=== PATIENT | female | born 1985 | race Hispanic/Latino ===

== ENCOUNTER 2020-04-20 13:08 | Outpatient (CLI) | payer BC, SELFPAY ==
[2020-04-20 14:45] LABS: Hematocrit 35.1 % (37.0-47.0); Hemoglobin 11.8 g/dL (12.0-15.0)
[2020-04-20 14:59] LABS: Glucose 1 Hour PP 50gm Dose 117 mg/dL
[2020-04-20 15:40] LABS: HIV 1/2 Ab P24 Ag Result Negative (Negative)
== END 2020-04-20 13:09 | disposition home or self-care (01) ==
PROVIDERS: PCP Family Medicine; Visit Provider Obstetrics & Gynecology
DX: Z34.02 Encounter for supervision of normal first pregnancy, second trimester (principal)
CPT/HCPCS: 36415; 82947; 85014; 85018; 86703; G0432

== ENCOUNTER 2020-04-30 21:30 | Observation (INO) | payer BC, SELFPAY ==
[2020-04-30 21:48] VITALS: TEMP 36.8
[2020-04-30 21:51] VITALS: BP 115/95; PULSE 85
[2020-04-30 21:57] VITALS: BP 119/75; PULSE 86
[2020-04-30 22:00] VITALS: BP 114/79; PULSE 88
--- NOTE | 2020-04-30 22:13 | PC.NURSE ---
rn and bedside w stratus superintendent institution device.
[2020-04-30 22:15] VITALS: BP 129/73; PULSE 83
[2020-04-30 22:51] LABS: Add Urine Microscopic? NO; Appearance Urine Clear (Clear); Bilirubin Urine Negative (Negative); Blood Urine Negative (Negative); Color Urine Straw (Yellow); Glucose Urine UA Negative (Negative); Ketones Urine Negative (Negative); Leukocyte Esterase Ur Negative LEU/UL (Negative); Nitrate Urine Negative (Negative); Protein Urine Negative (Negative); Specific Grav Ur 1.006 (1.001-1.035); Urobilinogen Urine Negative mg/dL (<2.0)
[2020-04-30 23:15] VITALS: BMI 27.2
[2020-04-30] MEDS: FAMOTIDINE 20 MG TABLET PO (23:26)
[2020-04-30] MEDS: ONDANSETRON HCL ODT 4 MG TABLET PO (23:31)
--- NOTE | 2020-05-01 01:54 | OBADM ---
This patient, Jenniffer Krishnamurthy, admitted to the OB room OB Post 117 for observation. Patient/family oriented to hospital policies and general routines including ID bracelet, bed and alarms, visiting hours, pain management, procedures, bathroom and other care routines, personal items, smoking policy, room service/diet, and visiting hours. Patient/Family are encouraged to report perceived risks to care and to ask questions if they do not understand what they are told or what they should do.
--- NOTE | 2020-05-03 07:54 | P.PNOB_ITS ---
OB - Triage/Final Diagnosis Evaluation Laboratory results: Laboratory Tests 04/30/20 22:37 Urine Color Straw Urine Appearance Clear Urine pH 7.0 Ur Specific [place] 1.006 Urine Protein Negative Urine Glucose (UA) Negative Urine Ketones Negative Ur Blood (Man) Negative Urine Nitrate Negative Urine Bilirubin Negative Urine Urobilinogen Negative Leukocyte Esterase Rfl Negative Final Diagnosis (1) Abdominal pain affecting : Code(s): O26.899 - Other specified related conditions, unspecified trimester; R10.9 - Unspecified abdominal pain Status: Acute
== END 2020-05-01 00:10 | disposition home or self-care (01) ==
PROVIDERS: Admitting Provider Obstetrics & Gynecology; Visit Provider Obstetrics & Gynecology
DX: O26.893 Other specified pregnancy related conditions, third trimester (principal); R10.9 Unspecified abdominal pain; Z3A.31 31 weeks gestation of pregnancy
CPT/HCPCS: 81003; A9270; G0378; G0379

== ENCOUNTER 2020-06-29 01:02 | Inpatient (IN) | payer BC, SELFPAY ==
[2020-06-29] VITALS (126 sets, daily range): BP systolic 109–165; BP diastolic 60–105; PULSE 68–134; RESP 13–22; TEMP 36.7–37.5; O2SAT 96–100; BMI 25.9
[2020-06-29 06:23] LABS: Basophils Percent Auto 0.1 % (0.2-1.2); Eosinophils Percent Auto 0.1 % (0-4.4); Hematocrit 35.4 % (37.0-47.0); Hemoglobin 12.1 g/dL (12.0-15.0); Immature Granulocyte Absolute 0.04 K/mm3 (0.00-0.031); Immature Granulocyte Percent A 0.3 % (0-0.5); Lymphocytes Absolute Auto 1.63 K/mm3 (0.9-3.2); Lymphocytes Percent Auto 13.7 % (18.3-44.2); Mean Corpuscular HGB Conc 34.2 g/dl (32-36); Mean Corpuscular Hemoglobin 29.9 pg (26-34); Mean Corpuscular Volume 87.4 fl (80-100); Mean Platelet Volume 11.2 fl (7.4-10.4); Monocytes Absolute Auto 0.6 K/mm3 (0.1-0.6); Monocytes Percent Auto 4.8 % (2.6-8.5); Neutrophils Absolute Auto 9.7 K/mm3 (1.3-6.7); Platelet Count Result 222 k/mm3 (150-375); Red Blood Count 4.05 M/mm3 (4.2-5.4); Red Cell Distribution Width 13.4 % (11.5-14.5); White Blood Count 11.9 K/mm3 (4.5-10.0)
--- NOTE | 2020-06-29 06:54 | P.PNAN_ITS ---
Anes - Eval Pre Procedure Procedure: labor epidural Date/Time: 06/29/20 06:54 Surgeon: Zacarias Patton Preop Diagnosis: Pain during labor Pre Op Diagnosis: Contractions Patient Data Age: 34 Gender: F Height: 5 ft 7 in Weight: 72.7 kg Last Vital Signs Temp 37.0 C 06/29/20 00:54 Pulse 86 06/29/20 06:15 Resp 22 H 06/29/20 00:54 BP 129/89 06/29/20 06:15 Pulse Ox 98 06/29/20 00:54 Allergies Allergy/AdvReac Type Severity Reaction Status Date / Time No Known Allergies Allergy Verified 11/27/19 18:47 Home Medications Medication Instructions Recorded Confirmed Type famotidine [Pepcid] 20 mg PO DAILY 30 Days #30 tablet 05/01/20 06/29/20 Rx Laboratory Tests 06/29/20 06/29/20 06:06 06:06 WBC 11.9 K/mm3 H K/mm3 (4.5-10.0) RBC 4.05 M/mm3 L M/mm3 (4.2-5.4) Hgb 12.1 g/dL g/dL (12.0-15.0) Hct 35.4 % L % (37.0-47.0) MCV 87.4 fl fl (80-100) MCH 29.9 pg pg (26-34) MCHC 34.2 g/dl g/dl (32-36) RDW 13.4 % % (11.5-14.5) Plt Count 222 k/mm3 k/mm3 (150-375) MPV 11.2 fl H fl (7.4-10.4) Immature Gran % (Auto) 0.3 % % (0-0.5) Neut % (Auto) 81.0 % H % (45.5-73.1) Lymph % (Auto) 13.7 % L % (18.3-44.2) [place] % (Auto) 4.8 % % (2.6-8.5) Eos % (Auto) 0.1 % % (0-4.4) Baso % (Auto) 0.1 % L % (0.2-1.2) Lymph # (Auto) 1.63 K/mm3 K/mm3 (0.9-3.2) [place] # (Auto) 0.6 K/mm3 K/mm3 (0.1-0.6) Eos # (Auto) 0.0 K/mm3 K/mm3 (0-0.3) Baso # (Auto) 0.0 K/mm3 K/mm3 (0.0-0.1) Abs Immat Gran (auto) 0.04 K/mm3 H K/mm3 (0.00-0.031) Absolute Neuts (auto) 9.7 K/mm3 H K/mm3 (1.3-6.7) Absolute Nucleated RBC 0.0 K/mm3 K/mm3 (0.0-0.012) Nucleated RBC % 0.0 % % (0.0-0.2) RPR Pending Patient hx anesthesia problems: none Family hx anesthesia problems: none [facility] Past Medical History Medical History BILLY 07/02/2020 Pyelonephritis Sepsis Surgical History Surgical History Surgical history unknown Social History Social History Smoking status: Never smoker Substance use: never Gender identity (if verbalized by the patient): Female Spiritual care concerns: No Exam Day of Procedure 06/29/20 06:54 Patient weight: normal Heart: regular rate and rhythm Lungs: clear to auscultation Airway: Mallampati scale class II Neurological: alert and oriented
--- NOTE | 2020-06-29 07:07 | LDADM ---
This patient, Jenniffer Krishnamurthy, was admitted to Labor/Delivery/Recovery 106 on 06/29/20 at 05:40. Plans for labor, pain management and were discussed with patient. Patient/family oriented to hospital policies and general routines including ID bracelet, bed and alarms, visiting hours, pain management, procedures, bathroom and other care routines, personal items, smoking policy, room service/diet and guest tray routines, security routines, and visiting hours. Patient/Family are encouraged to report perceived risks to care and to ask questions if they do not understand what they are told or what they should do. See OBIX for further documentation.
--- NOTE | 2020-06-29 07:40 | LDADM ---
Addendum entered by Pallavi Stark RN 06/29/20 07:47: charted in error Original Note: This patient, Jenniffer Krishnamurthy, was admitted to Labor/Delivery/Recovery 106 on 06/29/20 at 05:40. Plans for labor, pain management and were discussed with patient. Patient/family oriented to hospital policies and general routines including ID bracelet, bed and alarms, visiting hours, pain management, procedures, bathroom and other care routines, personal items, smoking policy, room service/diet and guest tray routines, security routines, and visiting hours. Patient/Family are encouraged to report perceived risks to care and to ask questions if they do not understand what they are told or what they should do. See OBIX for further documentation.
--- NOTE | 2020-06-29 07:40 | PM.IMHP ---
H&P: HPI History of Present Illness Date/Time: 06/29/20 07:40 Chief complaint: Contractions Narrative: Jenniffer Krishnamurthy is a 34 yo @ 39.4wks who presented with painful contractions and made change to 3cm dilation. heart rate tracing was also noted to have minimal accels and decision was made to admit to L&D and augment labor. Her is complicated by: - Variable presentation; cephalic confirmed on bedside US this morning - Jamaican speaking only Review of Systems Constitutional: Constitutional: Denies chills and Denies fatigue Eyes: Eyes: Denies blurry vision Cardiovascular: Cardiovascular: Denies chest pain and Denies palpitations Respiratory: Respiratory: Denies cough and Denies dyspnea Gastrointestinal: Gastrointestinal: Reports abdominal pain, Denies nausea and Denies vomiting Genitourinary: Comments: no bleeding or leakage of fluid Neurologic: Denies headache(s) Psychiatric: Psychiatric: Denies anxiety PMFSH Past Medical History Medical History BILLY 07/02/2020 Pyelonephritis Sepsis Surgical History Surgical History Surgical history unknown Social History Social History Smoking status: Never smoker Substance use: never Gender identity (if verbalized by the patient): Female Spiritual care concerns: No Meds Home Medications and Allergies Home Medications Medication Instructions Recorded Confirmed Type famotidine [Pepcid] 20 mg PO DAILY 30 Days #30 tablet 05/01/20 Rx Allergies Allergy/AdvReac Type Severity Reaction Status Date / Time No Known Allergies Allergy Verified 11/27/19 18:47 Vital Signs Vital Signs - 24 hr 06/29/20 00:54 06/29/20 01:27 06/29/20 01:30 Temperature 37.0 C Pulse Rate 76 74 78 Respiratory Rate 22 H Blood Pressure 147/83 H 150/91 H 130/87 Pulse Oximetry 98 06/29/20 06:15 Temperature Pulse Rate 86 Respiratory Rate Blood Pressure 129/89 Pulse Oximetry Exam Const: General: in distress (with contractions) mild Resp: Effort & Inspection: normal respiratory effort Cardio: Rate: regular rate GI: GI Palp: Yes Soft to palpation : Other: FHT's: 140's/ mod jan/+ accels/ no decels - cat 1 TOCO: ctx's q3min Cervix: /-2 @ 0730 Membrane: AROM, clear @ 0730 Position: cephalic on bedside US @ 0720 Skin: General skin exam: normal color Neuro: Speech: normal speech Extrem: General: normal to inspection Psych: Affect: normal affect H&P: Results Labs Labs: Short CBC 06/29/20 Range/Units 06:06 WBC 11.9 H (4.5-10.0) K/mm3 Hgb 12.1 (12.0-15.0) g/dL Hct 35.4 L (37.0-47.0) % Plt Count 222 (150-375) k/mm3 Assessment and Plan Assessment and plan (1) : Qualifiers: Weeks of gestation: 39 weeks Qualified Code(s): Z3A.39 - 39 weeks gestation of Code(s): Z34.90 - Encounter for supervision of normal , unspecified, unspecified trimester Status: Acute Assessment and Plan: - Admit to L&D for early labor - Labor augmented via AROM, clear @ 0730 - Cephalic presentation verified on US - Pitocin per protocol if contractions space out - Anesthesia consult PRN pain, or fentanyl IV
[2020-06-29] MEDS: LACTATED RINGERS 1,000 ML 125 ML IV CONT ×2 (09:24→13:45)
[2020-06-29] MEDS: OXYTOCIN 30 UNITS/NS 500 ML 30 UNITS/500 ML BAG IV CONT ×2 (09:25→13:46)
[2020-06-29 09:45] LABS: Rapid Plasma Reagin Non-Reactive (NonReactive)
--- NOTE | 2020-06-29 12:24 | P.PNOB_ITS ---
Pain Control Date/time seen: 06/29/20 12:24 Pain control: narcotic analgesia Pelvic Exam Dilation (cm): 4 Effacement (%): 90 station: -2 Amniotic membrane status: Ruptured Contractions Monitor mode: Internal (just placed) Contraction frequency: 3 Contraction pattern: Regular Intrauterine tone measurement: 45 Status status: Category ll Comments: 140's/ min to mod/ + accels/ no decels Assessment and Plan Comments: - Using automotive parts interpreter, I discussed anestheisa consult for pos sible epidural placement as pt is now having occasional severe range BP's (pt states the BP checks are when she contracts and is in pain). She is asymptomatic with BP's but will monitor closely. - Pt to get fentanyl and zofran now, until anesthesia is available - PEC labs ordered - FHT cat 1-2, overall reassuring - IUPC placed this exam as pt has remained 4cm all morning; contractions not adequate and I would like to start pitocin augmentation to make the contractions stronger and more frequent (discussed this with the patient). - If labetatlol needed for severe ranges, will then start MgSO4
[2020-06-29] MEDS: ONDANSETRON INJ 4 MG/2 ML VIAL IV PUSH (12:27)
[2020-06-29 12:50] LABS: Creatinine Urine 121.8 mg/dL; Total Protein Urine Random 80 mg/dL
[2020-06-29 12:53] LABS: Add Urine Microscopic? YES; Appearance Urine Clear (Clear); Bacteria Urine Trace /hpf; Bilirubin Urine Negative (Negative); Blood Urine Negative (Negative); Color Urine Yellow (Yellow); Glucose Urine UA Negative (Negative); Ketones Urine 1+ mg/dL (Negative); Leukocyte Esterase Ur Negative LEU/UL (NEGATIVE); Mucus Urine Rare /lpf; Nitrate Urine Negative (Negative); Protein Urine 2+ mg/dL (Negative); Specific Grav Ur 1.016 (1.001-1.035); Squamous Epithelial Cell Urine Few /hpf (Few); Urobilinogen Urine Negative mg/dL (<2.0)
[2020-06-29 12:54] LABS: Alanine Aminotransferase 10 U/L (4-35); Albumin Level 3.9 g/dL (3.5-5.1); Alkaline Phosphatase 307 U/L (38-126); Anion Gap 11 mmol/L (8-16); Aspartate Amino Transferase 19 U/L (14-36); Bilirubin,Total 0.5 mg/dL (0.2-1.3); Blood Urea Nitrogen 6 mg/dL (7-17); Calcium 9.3 mg/dL (8.4-10.2); Carbon Dioxide 19 mmol/L (22-30); Chloride 106 mmol/L (98-107); Estimated CRCL calculation 129 ml/min; Estimated Glomerular Filt Rate > 60; Glucose 100 mg/dL (65-105); Potassium 3.5 mmol/L (3.4-5.0); Sodium 136 mmol/L (137-145); Uric Acid 6.1 mg/dL (2.5-7.5)
--- NOTE | 2020-06-29 16:36 | PM.OBPNLAB ---
Pain Control Date/time seen: 06/29/20 16:36 Pain control: epidural Pelvic Exam Dilation (cm): 4 Effacement (%): 50 (swollen and thick (previously paper thin)) station: -2 Amniotic membrane status: Ruptured Contractions Monitor mode: Internal (just placed) Contraction frequency: 4 Contraction pattern: Regular Intrauterine tone measurement: 50 Status status: Category ll Comments: late decels Assessment and Plan Plan: Comments: - Pt had prolonged decel to 80's x8 min @ 1445 shortly after epidural and pitocin augmentation had been started - With pitocin discontinued, IV fluids were given, oxygen placed, and position change, the baby recovered. However, with every contraction, late decels were noted. - Pt was counseled on the findings of her cervix still being 4cm dilated and now feeling swollen (previously 90% effaced) and the non-reassuring tracing. - Pt was also informed that she was not zheng adequately and with the decels, we cannot restart pitocin. There is no improvement in cervical exam and felt that IOL is no longer safe. We will proceed with primary low transverse c/s. Pt agreed.
--- NOTE | 2020-06-29 16:39 | WPDANESEFPP ---
Anes - Eval Final PreProcedure Day of Procedure 06/29/20 16:39 Patient weight: overweight Heart: regular rate and rhythm Lungs: clear to auscultation and normal air movement Airway: Mallampati scale Neurological: alert and oriented Last oral intake: >/= 8 hours ASA classification: II Emergent: no Anesthetic plan: proceed Anesthesia type and monitoring: regional epidural and standard monitoring Other findings: C section Informed Consent: The patient's anesthetic plan and its attendant risks and benefits were discussed with the patient/family/POA. Questions were solicited and answers provided to the satisfaction of the patient/family/POA.
[2020-06-29] MEDS: KETOROLAC 30 MG/ML VIAL (*BKC) IV PUSH (17:15)
--- NOTE | 2020-06-29 17:51 | PM.OBPRVD ---
OB - Delivery Note Procedure Delivery date: 06/29/20 Procedure: Procedures Operation Date: 06/29/20 16:30 <No data on this case meets the specified criteria> Intrapartal events: Mild Preeclampsia and Intolerance Delivery augmentation: rupture of membranes and pitocin Delivery monitor: internal FHT and internal uterine Route of delivery: Specimen: Yes Estimated blood loss (mL): 580 Anesthesia type: Epidural Disposition: PACU Narrative: She was counseled on need for section due to non-reassuring heart tones and being remote from delivery. She was taken to the operating room where epidural anesthesia was found to be adequate. She was then prepped and draped in the normal sterile fashion. She received 2g Ancef and a time out was performed. A Pfannenstiel incision was made in the skin and carried down to the underlying fascia. The fascia was nicked on either side of the midline and the fascial incision was extended laterally and superiorly. The fascia was then elevated and the underlying rectus muscles were dissected off the fascia, superiorly and inferiorly. The rectus muscles were then in the midline and the peritoneum was entered bluntly. Once adequate exposure was obtained, an Kayden self retractor was placed within the abdomen. A bladder flap was created. A low transverse incision was made on the lower uterine segment and clear fluid was noted. The occicuput was brought to the hysterotomy and was not easily delivered due to how asyncyltic the head was. The kayden retractor was removed for extra space and a Kiwi vacuum was placed. After 2 pulls, 1 pop off, the head was delivered. The shoulders and body then followed without complications. The fetus had spontaneous cry and the mouth and nose were bulb suctioned. The cord was clamped and cut and the fetus was handed off to the awaiting pediatric nurse. A segment of the cord was collected for cord gases. The remaining cord blood was collected for typing. With pitocin infusing, the placenta delivered with gentle traction on the cord without complications. The uterus was then cleared out of all clots and debris using a clean, moist lap. The hysterotomy was then repaired in a running, interlocking fashion using 0 Vicryl. A second layer imbricating suture was then made using 0 Vicryl. The hysterotomy was found to be hemostatic and good uterine tone was noted. The bilateral adnexa were examined and found to be normal. The pelvis was cleared of all clots and fluid. The peritoneum, muscle, and fascia were examined and made hemostatic with bovie cautery. The fascia was then repaired using 0 Vicryl suture in a running fashion. The subcutaneous tissue was then irrigated and made hemostatic with bovie cautery. The skin was then closed using 3-0 Monocryl in a running subcuticular fashion and a clean dressing was placed over the incision. Sponge, lap, needle and instrument counts were correct at the end of the procedure x2. The patient tolerated the procedure well and was taken to recovery in a stable condition. [place] Baby Date of : 06/29/20 Time of : 17:09 Weeks of gestation at delivery: 39 gender: Male Weight (pounds): 6 Weight (ounces): 15 presentation: vertex position: Right Occiput Posterior Placenta delivery description: Manual Removal cord vessel description: 3 Vessels score one minute: 8 score five minutes: 9
[2020-06-29] MEDS: OXYTOCIN 30 UNITS/NS 500 ML 30 UNITS/500 ML BAG 125 UNITS IV CONT (18:14)
[2020-06-29] MEDS: MORPHINE SULFATE 2 MG/ML INJ IV PUSH (19:11)
[2020-06-29] MEDS: DEXTROSE 5%/0.45% SOD CHL 1,000 ML 125 ML IV CONT (22:35)
[2020-06-30] VITALS (7 sets, daily range): BP systolic 102–128; BP diastolic 63–75; PULSE 73–87; RESP 16–18; TEMP 36.5–37.2; O2SAT 97–98
[2020-06-30 05:15] LABS: Basophils Percent Auto 0.1 % (0.2-1.2); Hematocrit 28.6 % (37.0-47.0); Hemoglobin 9.6 g/dL (12.0-15.0); Immature Granulocyte Absolute 0.05 K/mm3 (0.00-0.031); Immature Granulocyte Percent A 0.4 % (0-0.5); Lymphocytes Absolute Auto 1.57 K/mm3 (0.9-3.2); Lymphocytes Percent Auto 11.4 % (18.3-44.2); Mean Corpuscular HGB Conc 33.6 g/dl (32-36); Mean Corpuscular Hemoglobin 30.2 pg (26-34); Mean Corpuscular Volume 89.9 fl (80-100); Mean Platelet Volume 10.9 fl (7.4-10.4); Monocytes Absolute Auto 0.8 K/mm3 (0.1-0.6); Neutrophils Absolute Auto 11.3 K/mm3 (1.3-6.7); Neutrophils Percent Auto 82.1 % (45.5-73.1); Platelet Count Result 185 k/mm3 (150-375); Red Blood Count 3.18 M/mm3 (4.2-5.4); Red Cell Distribution Width 13.5 % (11.5-14.5); White Blood Count 13.7 K/mm3 (4.5-10.0)
--- NOTE | 2020-06-30 08:00 | PC.NURSE ---
PT introductions made and plan of care discussed per post op c section, pain management, breast feeding, bottle feeding, daily care activities using the language cole on the phone and with the assistance of her significant other who knows very little upper sorbian. PT and significant other both verbalized understanding and had any questions answered.
[2020-06-30] MEDS: DOCUSATE SODIUM 100 MG CAPSULE PO ×2 (08:18→18:41)
[2020-06-30] MEDS: SIMETHICONE 80 MG TAB.CHEW PO ×3 (08:18→18:41)
[2020-06-30] MEDS: MULTIVIT/MIN/PREN/FOL AC/IRON TABLET 1 TAB PO (08:19)
[2020-06-30] MEDS: POLYSACCHARIDE IRON COMPLEX 150 MG CAPSULE PO ×2 (08:19→18:42)
[2020-06-30] MEDS: KETOROLAC 30 MG/ML VIAL (*BKC) IV PUSH ×2 (08:19→12:59)
--- NOTE | 2020-06-30 08:35 | WPDANLDPN2 ---
Anes-Prog Note L&D Date/Time: 06/30/20 08:35 Comfortable throughout: section Neuraxial method: epidural Epidural/Spinal procedure site: clean & non-tender Neuro status: Neuro function grossly intact. Cardiovascular status: normal Respiratory status: normal Airway patency: baseline Mental status: baseline Post-Op hydration status: normal Vital Signs: Last Vital Signs Temp 36.6 C 06/30/20 03:40 Pulse 87 06/30/20 03:40 Resp 16 06/30/20 03:40 BP 128/75 06/30/20 03:40 Pulse Ox 99 06/29/20 19:45 I/O: Intake & Output 06/29/20 06/30/20 06/30/20 23:59 07:59 15:59 Intake Total 1400 Output Total 65 600 Balance -65 800 Post-procedural complaints: none Patient feedback: Patient satisfied with anesthetic care.
--- NOTE | 2020-06-30 08:35 | WPDANLDNPN2 ---
Anes-Prog Note L&D-Neuraxial Date/Time: 06/30/20 08:35 Neuraxial medications: epidural PF morphine Opiod-related complaints: none Patient feedback: Patient satisfied with post-operative pain management.
--- NOTE | 2020-06-30 12:30 | PC.NURSE ---
Consulted with patient, mother wishes to attempt to breast. Reviewed feeding cues, frequencies, duration of feedings, feeding elimination flow sheet, and signs of adequate intake. Demonstrated stimulation techniques to wake for feeding. Assisted with to breast. Reviewed positioning/alignment in cross cradle, holding breast in U hold and guided asymmetrical latch on. made good efforts to latch. Infant was unable to latch correctly or draw nipple in. Attempt for 10 minutes, infant then bottle feed. Discussed pumping with mother she would like to wait at this time.
[2020-06-30] MEDS: ACETAMINOPHEN 325 MG TABLET 650 MG PO ×2 (13:00→18:40)
--- NOTE | 2020-06-30 13:00 | PC.NURSE ---
Dr Salazar used a language line to explain necessity of c section, pain management, breast feeding and plan of stay. PT denies having any questions or concerns at this time.
[2020-06-30] MEDS: FAMOTIDINE 20 MG TABLET PO (13:01)
--- NOTE | 2020-06-30 13:40 | PM.OBPNVD ---
OB - PN: Subj Subjective Date/time seen: 06/30/20 13:40 Jenniffer is a now 34yo P1001 s/p pLTCS due to NRFHT, POD#1 Today, Jenniffer states her pain is controlled with the PO pain meds. She is tolerating regular diet w/o N/V. She has ambulated but felt slightly dizzy. She has voided, no spontaneous flatus. Her bleeding is normal. She is breast feeding. She would not like her son circumcised. She denies CP, SOB, fever, chills, FERRER, vision changes, palpitations, N/V. OB - PN: Obj Data Labs CBC & Chem 7: 06/30/20 03:42 06/29/20 12:30 Labs: Laboratory Results - last 24 hr 06/30/20 03:42 WBC 13.7 H RBC 3.18 L Hgb 9.6 L Hct 28.6 L MCV 89.9 MCH 30.2 MCHC 33.6 RDW 13.5 Plt Count 185 MPV 10.9 H Immature Gran % (Auto) 0.4 Neut % (Auto) 82.1 H Lymph % (Auto) 11.4 L [place] % (Auto) 6.0 Eos % (Auto) 0.0 Baso % (Auto) 0.1 L Lymph # (Auto) 1.57 [place] # (Auto) 0.8 H Eos # (Auto) 0.0 Baso # (Auto) 0.0 Abs Immat Gran (auto) 0.05 H Absolute Neuts (auto) 11.3 H Absolute Nucleated RBC 0.0 Nucleated RBC % 0.0 OB - PN A/P Assessment and Plan (1) Status post section: Code(s): Z98.891 - History of uterine scar from previous surgery Status: Acute Plan day: 1 Plan: routine care Comments: - PEC w/o SF: labs normal except P/C of 0.6, BP's stable - H/H: appropriate drop from blood loss, pt encouraged to stay hydrated, move slowly. Iron BID - Routine : doing well, awaiting return of bowel function - Poss d/c home tomorrow Time Spent With Patient Time: Total time spent is greater than 50% in coordination of care (as documented) at patient's floor/unit and/or counseling patient: Review of Systems Review of Systems: All systems reviewed & are unremarkable except as noted in HPI and below (HPI) Exam Const: General: comfortable, no acute distress, alert and awake Orientation/consciousness: patient oriented x3 Resp: Effort & Inspection: normal respiratory effort Auscultation: clear to auscultation bilaterally Cardio: Rate: regular rate GI: Auscultation: normal bowel sounds Other: non-distended, soft, appropriately tender : Other: fundus firm below umbilicus Psych: Appearance: grossly normal Affect: normal affect Attitude: cooperative Judgement: Good judgement present (Psych)
--- NOTE | 2020-06-30 15:40 | PC.NURSE ---
Primary RN requested assist with latching. Reviewed infant feeding cues, frequencies, duration of feedings, feeding elimination flow sheet, and signs of adequate intake. Demonstrated stimulation techniques to wake for feeding. Assisted with to breast. Reviewed positioning/alignment in cross cradle, holding breast in U hold and guided asymmetrical latch on. Infant made good efforts to latch. was unable to latch correctly or draw nipple in. Attempt for 10 minutes, infant then bottle feed.
[2020-07-01] MEDS: IBUPROFEN 600 MG TABLET PO ×3 (00:15→13:01)
[2020-07-01] MEDS: ACETAMINOPHEN 325 MG TABLET 650 MG PO (00:15)
[2020-07-01 07:40] VITALS: BP 109/69; PULSE 66; RESP 16; TEMP 36.6; O2SAT 97
[2020-07-01] MEDS: DOCUSATE SODIUM 100 MG CAPSULE PO (07:43)
[2020-07-01] MEDS: POLYSACCHARIDE IRON COMPLEX 150 MG CAPSULE PO (07:43)
--- NOTE | 2020-07-01 10:39 | WPDANLDPN2 ---
Anes-Prog Note L&D Date/Time: 07/01/20 10:39 Comfortable throughout: section Neuraxial method: epidural Epidural/Spinal procedure site: clean & non-tender Neuro status: Neuro function grossly intact. Cardiovascular status: normal Respiratory status: normal Airway patency: baseline Mental status: baseline Post-Op hydration status: normal Vital Signs: Last Vital Signs Temp 36.6 C 07/01/20 07:40 Pulse 66 07/01/20 07:40 Resp 16 07/01/20 07:40 BP 109/69 07/01/20 07:40 Pulse Ox 97 07/01/20 07:40 Post-procedural complaints: none Patient feedback: Patient satisfied with anesthetic care.
--- NOTE | 2020-07-01 10:39 | WPDANLDNPN2 ---
Anes-Prog Note L&D-Neuraxial Date/Time: 07/01/20 10:39 Neuraxial medications: epidural PF morphine Opiod-related complaints: none Patient feedback: Patient satisfied with post-operative pain management.
--- NOTE | 2020-07-01 13:27 | PM.OBDSVD ---
DS: Admitting Diagnosis Admitting Diagnosis Admitting Diagnosis: Contractions OB - DS: Summary OB Procedures : None OB Procedures Intrapartum: OB Procedures: : None Peripartum Data Procedures: Procedures Operation Date: 06/29/20 16:30 Actual Procedures Side Surgeon p Section Bilateral Nubia Salazar MD Time Spent with Patient Time attestation: Total time spent providing and/or coordinating discharge services: DS: Data Data Completed and Pending Pending studies at discharge: Pending at discharge 06/29/20 17:10 Surgical [PTH] Routine Discharge Plan Discharge Consulting providers: Jose Lam Discharging Clinician: Zacarias Patton Patient Disposition: Home, Self-Care Activity: as tolerated Diet: as tolerated Patient Instructions: Antibiotic Form Stand Alone Forms: General Discharge Information Follow-up/Referrals: Zacarias Patton MD [Physician] - 3 Weeks Discharge Medications: New hydrocodone-acetaminophen 5-325 mg Tablet 1 tab PO Q3H PRN (Reason: Moderate Pain (4-6)) Qty: 20 RF: 0 ibuprofen 600 mg Tablet 600 mg PO Q6H PRN (Reason: Cramping) Qty: 30 RF: 0 Continued famotidine [Pepcid] 20 mg Tablet 20 mg PO DAILY 30 Days Qty: 30 RF: 0 Date of admission: 06/29/20 05:40 Primary Care Provider: PHYSICIAN,AUTOMATIC PILOT MECHANIC Admitting Provider: Zacarias Patton Attending physician on admission: Zacarias Patton
--- NOTE | 2020-07-01 15:00 | PC.NURSE ---
All discharge reviewed thru the logging supervisor. Mother continues to put to breast a few minutes each feeding, does not latch making weak attempts with latching. Mother has refused to initiate pumping to this point. Both parents are able to bottle feed infant. Infant is more awake and eagerly nippling formula. Patients states her sister in law will be available to assist her with , she has breastfed several of her children. Discussed mother contacting [facility] for assist with formula and once discharged, as it is close to her home. Advised mother she could return here for all assist if she chose. Again offered mother a pump to stimulate milk supply, mother would like the pump and instructions. Breast pump provided. Instructions given on breast pump care and usage, pumping schedule, nipple care, and collection and storage of breast milk. Encouraged [id number], breast massage and manual expression to stimulate supply. Assessed patient for correct flange size, placement and draw. Patient verbalizes and demonstrates understanding of instructions. Mother is feeding as required and waking infant to feed if needed. Infant is currently meeting outcomes for weight, output, jaundice and feeding frequencies. Mother states she feels confident to continue current feeding plan at home. Reviewed transition to breast milk, signs of adequate intake, and engorgement/relief. Instructed to call ICP if intake/output less than required. Reviewed regular medications mother is taking. Information provided per Daria. Reviewed community resources on the [employer] website and in the Mom/Baby guide. Information on outpatient services provided. Mother has no further questions at this time.
--- NOTE | 2020-07-02 07:30 | PM.OBDSVD ---
DS: Admitting Diagnosis Admitting Diagnosis Admitting Diagnosis: Contractions OB - DS: Summary OB Procedures : None OB Procedures Intrapartum: OB Procedures: : None Peripartum Data Procedures: Procedures Operation Date: 06/29/20 16:30 Actual Procedures Side Surgeon p Section Bilateral Nubia Salazar MD Time Spent with Patient Time attestation: Total time spent providing and/or coordinating discharge services: DS: Data Data Completed and Pending Pending studies at discharge: Pending at discharge 06/29/20 17:10 Surgical [PTH] Routine Discharge Plan Discharge Consulting providers: Jose Lam Discharging Clinician: Zacarias Patton Patient Disposition: Home, Self-Care Activity: as tolerated Diet: as tolerated Discharge Instructions: Education: Mom and Baby Guide Given to: Follow-Up: Call your delivering provider's office for an appointment to be seen in: in two weeks Mom and baby should come to the [facility] for the follow-up appointment. Appointment Date/Time: at 07/02/2020 at 8:00am What to expect at your follow-up visit: Incision check Call [phone] if you are unable to keep your appointment time. BREAST CARE: * Wear a snug supportive bra. * For engorgement discomfort: Breast Feeding: * Apply warm moist washcloths * Express milk as needed to relieve engorgement * Wear loose clothing Bottle Feeding: * May apply ice packs * For sore nipples: * Identify correct latch-on * Apply warm moist washcloths before and after nursing * Air dry nipples after nursing * May apply Lansinoh cream to nipples ABDOMINAL INCISION: (if applicable) * Allow incision to air dry * Do NOT use lotions for powders on your incision * When showering, allow soap and water to run over the incision, but do not wash incision EPISIOTOMY/PERINEAL CARE: * Until bleeding stops, use your tom bottle after urinating * Change your pad frequently throughout the day * You may take sitz baths several times a day (fill your bathtub with warm water and soak for 20 minutes.) Do NOT bathe in the water * No tub baths until seen by your physician - You may shower ACTIVITY: * Rest as much as possible. * Do not exercise or lift anything heavier than your baby (such as laundry or other children.) * Avoid stairs or driving as much as possible. * Do not put anything into the vagina. No douching, tampons, or sexual activity until seen by physician. NOTIFY PHYSICIAN IF YOU HAVE ANY QUESTIONS OR IF ANY OF THE FOLLOWING SYMPTOMS OCCUR: * If your episiotomy or incision becomes red, swollen, or more painful than what you have experienced in the hospital. * If your vaginal bleeding becomes foul smelling. * If your vaginal bleeding becomes more heavy than a period or if your bleeding changes from pink to bright red. However, you may pass an occasional walnut-sized clot once or twice for the first week . * If you experience a sharp, shooting pain in you calves. * If you discover a hard, reddened area on your breast or if you experience flu-like symptoms. DIET: * Eat regular, well-balanced meals. * Drink plenty of fluids daily. If , drink to thirst. Patient Instructions: Antibiotic Form Stand Alone Forms: General Discharge Information Follow-up/Referrals: Zacarias Patton MD [Physician] - 3 Weeks Discharge Medications: New hydrocodone-acetaminophen 5-325 mg Tablet 1 tab PO Q3H PRN (Reason: Moderate Pain (4-6)) Qty: 20 RF: 0 ibuprofen 600 mg Tablet 600 mg PO Q6H PRN (Reason: Cramping) Qty: 30 RF: 0 hydrocodone-acetaminophen 5-325 mg tablet 1 tablet PO Q6H PRN (Reason: pain) Qty: 20 RF: 0 Continued famotidine [Pepcid] 20 mg Tablet 20 mg PO DAILY 30 Days Qty: 30 RF: 0 Date of admission: 06/29/20 05:40
== END 2020-07-01 15:30 | disposition home or self-care (01) | DRG 540 ==
LOC: ANHLDR 05:40 → ANHOB2 20:49
PROVIDERS: Admitting Provider Obstetrics & Gynecology; Visit Provider Obstetrics & Gynecology
PROC: 10D00Z1 Extraction of Products of Conception, Low, Open Approach (ICD-10-PCS; CPT 59514; principal; 2020-06-29 16:30)
DX: O36.8930 Maternal care for other specified fetal problems, third trimester, not applicable or unspecified (principal); O14.94 Unspecified pre-eclampsia, complicating childbirth; O76 Abnormality in fetal heart rate and rhythm complicating labor and delivery; Z3A.39 39 weeks gestation of pregnancy; Z37.0 Single live birth
CPT/HCPCS: 36415; 80053; 81001; 82570; 84156; 84550; 85025; 86592; 86850; 86900; 86901; 87086; 87088; 88307; A9270; J1885; J2270; J2274; J2405; J2590; J2795; J3010; J7120

== ENCOUNTER 2020-08-10 14:44 | Outpatient (CLI) | payer BC, SELFPAY ==
[2020-08-10 16:30] LABS: Beta HCG Quantitative < 2.39 mIU/ML
== END 2020-08-10 14:45 | disposition home or self-care (01) ==
LOC: ANHLAB 14:51
PROVIDERS: Visit Provider Obstetrics & Gynecology
DX: N92.6 Irregular menstruation, unspecified (principal)
CPT/HCPCS: 36415; 84702

== ENCOUNTER 2020-08-15 20:54 | Emergency (ER) | payer BC, SELFPAY ==
--- NOTE | ~2020-08-15 | CT_ITS ---
EXAMINATION: CT brain wo con EXAM DATE: 08/16/2020 02:36 INDICATION: Right-sided headache for one week. TECHNIQUE: Spiral CT of the head was performed without contrast. Axial, coronal and sagittal images were reviewed. The dose-length product (DLP) for this examination was 605.33 mGy-cm. The exposure w as tailored according to patient size, and iterative reconstruction (ASIR) was used as additional dos e reduction technique. There is no prior study for comparison. FINDINGS: There is no acute intraparenchymal hemorrhage. No evidence of intraparenchymal brain mass lesion. No evidence of acute infarction. There is no mass effect or midline shift. The ventricles are normal in size. There are no extra-axial collections. There are no acute calvarial fractures. T he orbits are unremarkable. Soft tissue is unremarkable. The visualized sinuses and mastoid air nathen ls are well aerated. IMPRESSION: 1. Unremarkable head CT examination. Reviewed, dictated and finalized at location A.
--- NOTE | ~2020-08-15 | XR_ITS ---
EXAMINATION: XR chest 1V portable EXAM DATE: 08/16/2020 03:15 INDICATION: Mid chest pain. TECHNIQUE: Portable AP frontal chest x-ray was obtained. There is no prior study for comparison. FINDINGS: The lungs are clear. There are no pleural effusions. The cardiomediastinal silhouette is within normal limits. There is no pneumothorax suspected. The bones and soft tissues are unremarkab le. IMPRESSION: No acute cardiopulmonary findings. Reviewed, dictated and finalized at location A.
[2020-08-15 21:18] VITALS: BP 154/99; PULSE 75; RESP 16; TEMP 36.4; O2SAT 100
[2020-08-15 22:08] LABS: Basophils Percent Auto 0.3 % (0.2-1.2); Eosinophils Absolute Auto 0.2 K/mm3 (0-0.3); Hematocrit 36.5 % (37.0-47.0); Hemoglobin 12.4 g/dL (12.0-15.0); Immature Granulocyte Absolute 0.02 K/mm3 (0.00-0.031); Immature Granulocyte Percent A 0.3 % (0-0.5); Lymphocytes Absolute Auto 2.03 K/mm3 (0.9-3.2); Lymphocytes Percent Auto 35.1 % (18.3-44.2); Mean Corpuscular Hemoglobin 29.3 pg (26-34); Mean Corpuscular Volume 86.3 fl (80-100); Mean Platelet Volume 9.4 fl (7.4-10.4); Monocytes Absolute Auto 0.4 K/mm3 (0.1-0.6); Monocytes Percent Auto 7.6 % (2.6-8.5); Neutrophils Absolute Auto 3.1 K/mm3 (1.3-6.7); Neutrophils Percent Auto 52.7 % (45.5-73.1); Platelet Count Result 329 k/mm3 (150-375); Red Blood Count 4.23 M/mm3 (4.2-5.4); Red Cell Distribution Width 12.3 % (11.5-14.5); White Blood Count 5.8 K/mm3 (4.5-10.0)
[2020-08-15 22:33] LABS: Potassium 3.1 mmol/L (3.4-5.0)
[2020-08-15 22:36] LABS: Alanine Aminotransferase 33 U/L (4-35); Albumin Level 4.6 g/dL (3.5-5.1); Alkaline Phosphatase 121 U/L (38-126); Anion Gap 12 mmol/L (8-16); Aspartate Amino Transferase 31 U/L (14-36); Bilirubin,Total 0.4 mg/dL (0.2-1.3); Blood Urea Nitrogen 9 mg/dL (7-17); Calcium 9.5 mg/dL (8.4-10.2); Carbon Dioxide 27 mmol/L (22-30); Chloride 106 mmol/L (98-107); Estimated Glomerular Filt Rate > 60; Glucose 100 mg/dL (65-105); Lipase 87 U/L (23-300); Sodium 145 mmol/L (137-145)
[2020-08-15 23:30] VITALS: BP 134/100; PULSE 80; RESP 17; O2SAT 99
[2020-08-16 00:47] LABS: Add Urine Microscopic? YES; Appearance Urine Clear (Clear); Bacteria Urine Trace /hpf; Bilirubin Urine Negative (Negative); Blood Urine Negative (Negative); Color Urine Straw (Yellow); Glucose Urine UA Negative (Negative); Ketones Urine Negative (Negative); Leukocyte Esterase Ur Trace LEU/UL (Negative); Nitrate Urine Negative (Negative); Protein Urine Negative (Negative); RBC Urine 0-2 /hpf (0-2); Specific Grav Ur 1.008 (1.001-1.035); Squamous Epithelial Cell Urine Rare /hpf (Few); Urobilinogen Urine Negative mg/dL (<2.0)
[2020-08-16 01:46] VITALS: BP 146/93; PULSE 67; RESP 17; TEMP 36.2; O2SAT 100
--- NOTE | 2020-08-16 02:12 | ECG_ITS ---
Measurements Intervals [place] Rate: 64 P: -5 MA: 118 QRS: 11 QRSD: 93 T: 21 QT: 409 QTc: 422 Interpretive Statements SINUS RHYTHM WITH SHORT MA INTERVAL BASELINE ARTIFACT- I, II, III, AVR, AVL, AVF BORDERLINE ECG Electronically Signed On 08-16-2020 7:54:15 CDT by Rick Ch D.O.
--- NOTE | 2020-08-16 02:43 | ED.GENADULT ---
HPI - General Adult General Chief complaint: Headache Stated complaint: headache Time Seen by Provider: 08/16/20 01:53 Source: RN notes reviewed History of Present Illness HPI narrative: Patient presents emergency department from home for numerous complaints. Patient states she is been having a intermittent headache for the past 2 weeks. States that it does get better when she takes Tylenol and then will resume is described as a frontal headache does not radiate. Patient also states she has been having left breast pain for the past 1-1/2 weeks. Patient has a history of delivery by Dr. Salazar on 06/29/2020. And states she did follow with Dr. Salazar last week and Dr. Salazar order an ultrasound of her left breast but she has not obtained this yet. She denies any fevers or chills shortness of breath abdominal pain or any other symptoms. Patient states she currently has no headache while in the emergency department Related Data Allergies Allergy/AdvReac Type Severity Reaction Status Date / Time No Known Allergies Allergy Verified 11/27/19 18:47 Review of Systems Review of Systems: Narrative: Gen.: Denies fevers or chills Eyes: Denies eye pain or visual change ENT: Denies congestion Respiratory: Denies shortness of breath or cough CV: Denies chest pain or palpitations GI: Denies abdominal pain nausea, emesis or diarrhea denies burning, urgency, frequency or hematuria Musculoskeletal: Denies back pain or muscle pain Neuro: Denies numbness, tingling, weakness or focal weakness reports headache Skin: Denies rash Except as documented, all other systems reviewed and negative [facility] Past Medical History Medical History BILLY 07/02/2020 Pyelonephritis Sepsis Social History Social History Smoking status: Never smoker Substance use: never Gender identity (if verbalized by the patient): Female Spiritual care concerns: No Exam Narrative: Exam Narrative: APPEARANCE: No acute distress, nontoxic, resting in bed EYES: EOMI, Jaden HEENT: Normocephalic, atraumatic, OMM, nares patent RESPIRATORY: No respiratory distress Clear to auscultation bilaterally with no rhonchi wheezing or rales. CARDIOVASCULAR: Regular rate and rhythm without murmurs rubs or gallops. Chest: The left breast is tender to palpation of the superior aspect there is no overlying erythema no tenderness over the medial lateral or inferior breast ABDOMINAL: Soft, nontender, nondistended, no rebound or guarding MUSCULOSKELETAl: Moves all extremities. No clubbing, cyanosis or edema. NEURO: Awake and alert x 4. Following commands, speech normal, no focal deficits SKIN:: Warm, dry. No rashes lesions or abrasions PSYCHIATRIC: Normal affect/mood, Course Course Emergency Course: Called discussed with Dr. Salazar presentation work-up. She states the patient is well-known to her. She states she was given a prescription for ultrasound which is 19. She agrees with plan for starting Keflex to cover breast as well as UTI with discharge follow-up as an outpatient Discussed with patient results of workup and diagnosis. Discussed need for follow-up with primary care, proper use of medication, and reasons to return to the emergency department. Patient understands and agrees to current treatment plan Stratus was used throughout the patient stay for interpretation Vital Signs Vital signs: Vital Signs Temperature 97.5 F L 08/15/20 21:18 Pulse Rate 75 08/15/20 21:18 Respiratory Rate 16 08/15/20 21:18 Blood Pressure 154/99 H 08/15/20 21:18 Pulse Oximetry 100 08/15/20 21:18 Temperature 97.1 F L 08/16/20 01:46 Pulse Rate 88 08/16/20 03:11 Respiratory Rate 19 08/16/20 03:11 Blood Pressure 148/88 H 08/16/20 03:11 Pulse Oximetry 98 08/16/20 03:11 Medical Decision Making [facility] Narrative Medical decision making narrative: Patient's head
[2020-08-16 03:00] LABS: Troponin I < 0.012 ng/mL (0.000-0.034)
[2020-08-16 03:01] LABS: D Dimer 0.27 ug/mL (<0.48)
[2020-08-16 03:11] VITALS: BP 148/88; PULSE 88; RESP 19; O2SAT 98
[2020-08-16] MEDS: CEPHALEXIN 500 MG CAPSULE PO (03:35)
[2020-08-16] MEDS: POTASSIUM CHLORIDE 20 MEQ TABLET 40 MEQ PO (03:35)
== END 2020-08-16 03:53 | disposition home or self-care (01) ==
PROVIDERS: Emergency Provider Emergency Medicine
DX: R51 Headache (principal); N39.0 Urinary tract infection, site not specified; N64.4 Mastodynia; R94.31 Abnormal electrocardiogram [ECG] [EKG]
CPT/HCPCS: 36415; 70450; 71045; 80053; 81001; 81025; 83690; 84484; 85025; 85380; 93005; 99284; A9270

== ENCOUNTER 2020-08-31 14:51 | Outpatient (CLI) | payer BC, SELFPAY ==
[2020-08-31 15:40] LABS: Beta HCG Quantitative < 2.39 mIU/ML
== END 2020-08-31 14:52 | disposition home or self-care (01) ==
PROVIDERS: Visit Provider Obstetrics & Gynecology
DX: N92.6 Irregular menstruation, unspecified (principal)
CPT/HCPCS: 36415; 84702

== ENCOUNTER 2020-11-25 09:56 | Outpatient (CLI) | payer BC, SELFPAY ==
[2020-11-25 10:29] LABS: Basophils Percent Auto 0.4 % (0.2-1.2); Eosinophils Absolute Auto 0.3 K/mm3 (0-0.3); Eosinophils Percent Auto 4.2 % (0-4.4); Hematocrit 39.8 % (37.0-47.0); Hemoglobin 13.3 g/dL (12.0-15.0); Immature Granulocyte Absolute 0.01 K/mm3 (0.00-0.031); Immature Granulocyte Percent A 0.1 % (0-0.5); Lymphocytes Absolute Auto 2.04 K/mm3 (0.9-3.2); Lymphocytes Percent Auto 29.8 % (18.3-44.2); Mean Corpuscular HGB Conc 33.4 g/dl (32-36); Mean Corpuscular Hemoglobin 29.8 pg (26-34); Mean Platelet Volume 9.4 fl (7.4-10.4); Monocytes Absolute Auto 0.5 K/mm3 (0.1-0.6); Monocytes Percent Auto 7.2 % (2.6-8.5); Neutrophils Percent Auto 58.3 % (45.5-73.1); Platelet Count Result 315 k/mm3 (150-375); Red Blood Count 4.47 M/mm3 (4.2-5.4); Red Cell Distribution Width 13.2 % (11.5-14.5); White Blood Count 6.9 K/mm3 (4.5-10.0)
[2020-11-25 10:41] LABS: Alanine Aminotransferase 26 U/L (4-35); Albumin Level 4.4 g/dL (3.5-5.1); Alkaline Phosphatase 104 U/L (38-126); Anion Gap 8 mmol/L (8-16); Aspartate Amino Transferase 23 U/L (14-36); Bilirubin,Total 0.5 mg/dL (0.2-1.3); Blood Urea Nitrogen 11 mg/dL (7-17); Calcium 9.2 mg/dL (8.4-10.2); Carbon Dioxide 25 mmol/L (22-30); Chloride 106 mmol/L (98-107); Cholesterol 150 mg/dL (0-200); Estimated Glomerular Filt Rate > 60; Glucose 96 mg/dL (65-105); HDL Direct 49 mg/dL; Potassium 4.2 mmol/L (3.4-5.0); Sodium 139 mmol/L (137-145); Triglycerides 170 mg/dL (<150)
[2020-11-25 10:47] LABS: Hemoglobin A1C 5.3 % (<5.7)
[2020-11-25 10:52] LABS: LDL Cholesterol Direct 79 mg/dL
[2020-11-25 11:05] LABS: Beta HCG Quantitative < 2.39 mIU/ML
[2020-11-25 11:33] LABS: Vitamin D 25 Hydroxy 19.4 ng/mL
[2020-11-25 12:19] LABS: Folic Acid 18.9 ng/mL (2.76->20)
== END 2020-11-25 09:57 | disposition home or self-care (01) ==
LOC: ANHLAB 09:57
PROVIDERS: Visit Provider Obstetrics & Gynecology
DX: Z00.00 Encounter for general adult medical examination without abnormal findings (principal); L65.9 Nonscarring hair loss, unspecified
CPT/HCPCS: 36415; 80053; 80061; 82306; 82607; 82746; 83036; 84443; 84702; 85025; 86038

== ENCOUNTER 2022-01-13 16:22 | Emergency (ER) | payer BC, SELFPAY ==
--- NOTE | 2022-01-13 17:05 | ED.GENADULT ---
HPI - General Adult General Chief complaint: Unspecified Stated complaint: left arm pain Time Seen by Provider: 01/13/22 16:38 Source: patient and interpreter translator Mode of arrival: ambulatory Limitations: no limitations History of Present Illness HPI narrative: 36-year-old [place]-speaking female presents with multiple complaints. Patient having epigastric pain that radiates to her right shoulder after eating. Patient states this has been going on for weeks. Patient also has been urinary frequency and burning for couple days. Patient also requesting that her Implanon and left arm be removed. Patient has a history of high cholesterol. Other complaints Onset (ago): week(s) (3) Location: abdomen Radiation: extremity (Right shoulder) Related Data Allergies Allergy/AdvReac Type Severity Reaction Status Date / Time No Known Allergies Allergy Verified 11/27/19 18:47 Review of Systems Review of Systems: All systems reviewed & are unremarkable except as noted in HPI and below Constitutional: Constitutional: Reports no additional constitutional complaints Eyes: Eyes: Reports as per HPI and Reports no additional eye complaints ENT: Reports system reviewed and no additional complaints, except as documented Cardiovascular: Cardiovascular: Reports no additional cardiovascular complaints Respiratory: Respiratory: Reports no additional respiratory complaints Gastrointestinal: Gastrointestinal: Reports abdominal pain, Reports change in bowel habits, Reports constipation and Reports nausea Genitourinary: Genitourinary: Reports nocturia and Reports dysuria Musculoskeletal: Musculoskeletal: Reports no additional musculoskeletal complaints Integumentary/Breasts: Skin/Breast: Reports system reviewed and no additional complaints, except as docu Neurologic: Reports system reviewed and no additional complaints, except as documented Psychiatric: Psychiatric: Reports no additional psychiatric complaints Endocrine: Endocrine: Reports no additional endocrine complaints Hematologic/Lymphatic: Hematologic/Lymphatic: Reports no additional hematologic/lymphatic complaints Allergic/Immunologic: Allergic/Immunologic: Reports no additional allergic/immunologic complaints [facility] Past Medical History Medical History (Updated 01/13/22 @ 18:11 by Malik Ignacio APRN) BILLY 07/02/2020 Pyelonephritis Sepsis Surgical History Surgical History (Updated 06/30/20 @ 13:51 by Nubia Salazar MD) Surgical history unknown Social History Social History Smoking status: Never smoker Substance use: never Gender identity (if verbalized by the patient): Female Spiritual care concerns: No Exam Narrative: General appearance: Well-developed, well-nourished Skin: Normal color Head: Normocephalic, nontraumatic Eyes: Clear conjunctiva ENT: Oropharynx normal, ears normal, nose normal Neck: Supple, nontender Chest and respiratory: Airway patent, no respiratory distress, no accessory muscle use Heart: Regular rate/rhythm Abdomen: Soft, nontender, no organomegaly, quiet bowel sounds Vascular: Normal peripheral pulses, normal capillary refill. Musculoskeletal: Normal range of motion, nontender back Neurologic: Alert and oriented ?3, [employer] is normal as tested, no gross motor deficit Course Course Emergency Course: Patient's labs are negative. Symptoms are suggestive of gallstones. Will refer to GI with prescription for Bentyl. Patient instructed to go to [facility] to have Implanon removed Vital Signs Vital signs: Vital Signs Temperature 37.1 C 01/13/22 17:20 Pulse Rate 111 H 01/13/22 17:20 Respiratory
[2022-01-13 17:20] VITALS: BP 122/89; PULSE 111; RESP 18; TEMP 37.1; O2SAT 99
[2022-01-13 17:33] LABS: Basophils Percent Auto 0.5 % (0.2-1.2); Eosinophils Absolute Auto 0.2 K/mm3 (0-0.3); Eosinophils Percent Auto 2.3 % (0-4.4); Hematocrit 42.1 % (37.0-47.0); Hemoglobin 14.6 g/dL (12.0-15.0); Immature Granulocyte Absolute 0.02 K/mm3 (0.00-0.031); Immature Granulocyte Percent A 0.2 % (0-0.5); Lymphocytes Absolute Auto 2.61 K/mm3 (0.9-3.2); Lymphocytes Percent Auto 32.2 % (18.3-44.2); Mean Corpuscular HGB Conc 34.7 g/dl (32-36); Mean Corpuscular Hemoglobin 31.2 pg (26-34); Mean Platelet Volume 9.3 fl (7.4-10.4); Monocytes Absolute Auto 0.7 K/mm3 (0.1-0.6); Monocytes Percent Auto 8.9 % (2.6-8.5); Neutrophils Absolute Auto 4.5 K/mm3 (1.3-6.7); Neutrophils Percent Auto 55.9 % (45.5-73.1); Platelet Count Result 377 k/mm3 (150-375); Red Blood Count 4.68 M/mm3 (4.2-5.4); Red Cell Distribution Width 12.3 % (11.5-14.5); White Blood Count 8.1 K/mm3 (4.5-10.0)
[2022-01-13 17:38] LABS: Add Urine Microscopic? NO; Appearance Urine Clear (Clear); Bilirubin Urine Negative (Negative); Blood Urine Negative (Negative); Color Urine Colorless (Yellow); Glucose Urine UA Negative (Negative); Ketones Urine Negative (Negative); Leukocyte Esterase Ur Negative LEU/UL (Negative); Nitrate Urine Negative (Negative); Protein Urine Negative (Negative); Urobilinogen Urine Negative mg/dL (<2.0)
[2022-01-13 17:44] LABS: Specific Grav Ur 1.002 (1.001-1.035)
[2022-01-13 17:55] LABS: Alanine Aminotransferase 43 U/L (4-35); Albumin Level 4.9 g/dL (3.5-5.1); Alkaline Phosphatase 113 U/L (38-126); Anion Gap 12 mmol/L (8-16); Aspartate Amino Transferase 41 U/L (14-36); Bilirubin,Total 0.3 mg/dL (0.2-1.3); Blood Urea Nitrogen 9 mg/dL (7-17); Calcium 9.2 mg/dL (8.4-10.2); Carbon Dioxide 24 mmol/L (22-30); Chloride 107 mmol/L (98-107); Estimated Glomerular Filt Rate > 60; Glucose 101 mg/dL (65-110); Lipase 112 U/L (23-300); Potassium 3.3 mmol/L (3.4-5.0); Sodium 143 mmol/L (137-145)
== END 2022-01-13 19:06 | disposition home or self-care (01) ==
PROVIDERS: Emergency Provider Nurse Practitioner Family
DX: R10.13 Epigastric pain (principal); E78.00 Pure hypercholesterolemia, unspecified
CPT/HCPCS: 36415; 80053; 81003; 83690; 85025; 99283